=== PATIENT | female | born 1960 | race Caucasian/White ===

== ENCOUNTER → 2020-08-23 | Day surgery (SDC) | payer BC ==
[~2020-08-23] MED LIST: ATORVASTATIN CA20 MG PO; COLESTIPOL HCL1 GM PO; DONNATAL/LIDOCAINE/MAALOX 30 ML SUSP PO SCH; ESTROVEN MAX400 MCG PO; FAMOTIDINE 20 MG/2 ML VIAL IV ONE; GEMFIBROZIL600 MG PO; LISINOPRIL10 MG PO; METFORMIN HCL500 MG PO; OMEGA 3 1,0001 EACH PO; ONDANSETRON HCL INJ 2MG/ML 2ML 2 MG/ML VIAL ONE; PANTOPRAZOLE 40 MG 10ML VIAL ONE; PANTOPRAZOLE SO40 MG PO; SERTRALINE HCL50 MG PO; VITAMIN D1000 UNI1 PO
[2020-08-23 10:50] VITALS: BP 126/72
[2020-08-23 11:50] LABS: WBC,FECAL (FECAL LACTOFERRIN) NEGATIVE (NEGATIVE)
[2020-08-23 14:21] LABS: C DIFFICILE TOXIN A&B AMP PROB **POSITIVE** (NEGATIVE)
== END | disposition home or self-care (01) ==
LOC: OR 07:22
PROVIDERS: ATTEND Internal Medicine Gastroenterology
DX: K52.9 Noninfective gastroenteritis and colitis, unspecified (principal); D17.5 Benign lipomatous neoplasm of intra-abdominal organs; K63.5 Polyp of colon; K29.70 Gastritis, unspecified, without bleeding; K29.80 Duodenitis without bleeding; K22.70 Barrett's esophagus without dysplasia; K21.9 Gastro-esophageal reflux disease without esophagitis; K20.90 Esophagitis, unspecified without bleeding; Z98.84 Bariatric surgery status; R05 Cough; I10 Essential (primary) hypertension; E78.5 Hyperlipidemia, unspecified; E11.9 Type 2 diabetes mellitus without complications; N20.0 Calculus of kidney; F32.9 Major depressive disorder, single episode, unspecified; F17.210 Nicotine dependence, cigarettes, uncomplicated; Z01.810 Encounter for preprocedural cardiovascular examination; Z01.812 Encounter for preprocedural laboratory examination; Z20.822 Contact with and (suspected) exposure to COVID-19; Z79.84 Long term (current) use of oral hypoglycemic drugs; Z80.0 Family history of malignant neoplasm of digestive organs
CPT/HCPCS: 36415; 43239; 45380; 45384; 82948; 83630; 83993; 85651; 86140; 86256; 86671; 87045; 87177; 87328; 87493; 93005; C9113; J2405; U0002; 45378

== ENCOUNTER → 2024-09-13 | Outpatient (REF) | payer OTHER ==
[~2024-09-13] MED LIST changes: +CARVEDILOL6.25 MG PO; -DONNATAL/LIDOCAINE/MAALOX 30 ML SUSP PO SCH; -FAMOTIDINE 20 MG/2 ML VIAL IV ONE; +GLYCOPYRROLATE INJ 0.2 MG/ML VIAL ONE; +HYDROCHLOROTHIA50 MG PO; +LANTUS 3ML100 UNITS/ SC; +LIDOCAINE HCL 2% LOCAL INJ 5 ML SDV VIAL INJ ONE; -PANTOPRAZOLE 40 MG 10ML VIAL ONE; +PROPOFOL IV EMULSION 0 ML IV ONE; +VITAMIN D325 MCG PO; +XIGDUO XR 5 MG1 EACH PO
== END ==
LOC: RAD 12:00 → EDSTATUS 09-23 08:00
PROVIDERS: ATTEND Internal Medicine Gastroenterology
DX: Z01.810 Encounter for preprocedural cardiovascular examination (principal); K76.0 Fatty (change of) liver, not elsewhere classified; Z86.0100 Personal history of colon polyps, unspecified; R19.7 Diarrhea, unspecified
CPT/HCPCS: 93005; J2003; J2405

== ENCOUNTER → 2024-10-21 | Day surgery (SDC) | payer OTHER ==
[~2024-10-21] MED LIST changes: +FENTANYL CITRATE/PF 100MCG/2 ML INJ ONE; +GLUCAGON FOR INJ 1 MG VIAL ONE; -GLYCOPYRROLATE INJ 0.2 MG/ML VIAL ONE; +HYOSCYAMINE SULFATE 0.5 MG/ML INJ ONE; +MIDAZOLAM HCL 2 MG/2 ML VIAL ONE; -PROPOFOL IV EMULSION 0 ML IV ONE; +PROPOFOL IV EMULSION 10 MG/ML 20 ML VIAL ONE; +PROPOFOL IV EMULSION 50 ML IV ONE
[2024-10-21] MEDS: LACTATED RINGER'S 1,000 ML ONE (07:16)
[2024-10-21 09:07] VITALS: TEMP 98.4
[2024-10-21 09:30] VITALS: BP 137/76; PULSE 89; RESP 18; O2SAT 97
== END | disposition home or self-care (01) ==
LOC: OR 05:51
PROVIDERS: ATTEND Internal Medicine Gastroenterology
DX: K29.70 Gastritis, unspecified, without bleeding (principal); D12.2 Benign neoplasm of ascending colon; K62.1 Rectal polyp; D17.5 Benign lipomatous neoplasm of intra-abdominal organs; K22.70 Barrett's esophagus without dysplasia; K31.89 Other diseases of stomach and duodenum; R19.7 Diarrhea, unspecified; K21.9 Gastro-esophageal reflux disease without esophagitis; K64.8 Other hemorrhoids; K75.81 Nonalcoholic steatohepatitis (NASH); E11.9 Type 2 diabetes mellitus without complications; I10 Essential (primary) hypertension; E78.5 Hyperlipidemia, unspecified; F32.A Depression, unspecified; F41.9 Anxiety disorder, unspecified; F17.200 Nicotine dependence, unspecified, uncomplicated; Z79.84 Long term (current) use of oral hypoglycemic drugs; Z79.4 Long term (current) use of insulin; Z79.899 Other long term (current) drug therapy
CPT/HCPCS: 36415; 43239; 45380; 45385; 82948; J1610; J1980; J2003; J2250; J2405; J2470; J2704 ×2; J3010; J7121; 45378